=== PATIENT | male | born 1990 ===

== ENCOUNTER 2017-10-13 15:32 | Emergency (ER) | payer SELFPAY ==
[2017-10-13 15:41] VITALS: BMI 24.3
[2017-10-13] MEDS ORDERED: Lidocaine 2% Inj (20ml) IJ STA (16:11)
[2017-10-13 16:22] VITALS: RESP 19; O2SAT 99
[2017-10-13] MEDS ORDERED: Lidocaine PF 2% (5 ml) Inj (For Cardiac Arrhy) ONE (16:23)
[2017-10-13] MEDS ORDERED: Tmp-Smz 800 mg-160 mg DS Tab PO STA (16:48)
[2017-10-13 17:35] VITALS: BP 121/52; PULSE 85; TEMP 99
--- NOTE | 2017-10-13 17:58 | ED PDOC ---
Arrival/HPI - General Chief Complaint: Abnormal Skin Integrity Time Seen by Provider: 10/13/17 15:42 Historian: Patient - History of Present Illness Narrative History of Present Illness (Text): 10/13/17 17:54 26 year old male, with no significant past medical history, who presents to the ED complaining of left middle finger swelling at cuticle today. Patient notes associated redness that tracks up left arm. Patient states he did not take any medications. Patient states he may have hit finger yesterday. Patietn denies any fever, chills, nausea, vomiting, chest pain, neck pain, or any other complaints. Time/Duration: Prior to Arrival Symptom Onset: Gradual Symptom Course: Unchanged Activities at Onset: Light Context: Home Past Medical History - Provider Review Nursing Documentation Reviewed: Yes - Infectious Disease Hx of Infectious Diseases: None - Psychiatric Hx Substance Use: No - Anesthesia Hx Anesthesia: No Hx Anesthesia Reactions: No Hx Malignant Hyperthermia: No Family/Social History - Physician Review Nursing Documentation Reviewed: Yes Family/Social History: Unknown Family HX Smoking Status: Light Smoker < 10 Cigarettes Daily Hx Alcohol Use: No Hx Substance Use: No Allergies/Home Meds Allergies/Adverse Reactions: Allergies No Known Allergies Allergy (Unverified 10/13/17 16:11) Review of Systems - Physician Review All systems were reviewed & negative as marked: Yes - Review of Systems Constitutional: Normal Eyes: Normal ENT: Normal Respiratory: Normal. absent: SOB, Cough Cardiovascular: Normal. absent: Chest Pain Gastrointestinal: Normal. absent: Abdominal Pain, Diarrhea, Nausea, Vomiting Genitourinary Male: Normal. absent: Dysuria, Frequency Musculoskeletal: Normal. absent: Back Pain, Neck Pain Skin: Other (swelling and redness at left middle finger; redness tracking up left arm) Neurological: Normal. absent: Headache Endocrine: Normal Hemo/Lymphatic: Normal Psychiatric: Normal Physical Exam Vital Signs Reviewed: Yes Vital Signs Temp Pulse Resp BP Pulse Ox 10/13/17 17:36 99 F 10/13/17 17:00 99 F 85 19 121/52 L 99 10/13/17 15:51 100.1 F H 88 19 138/58 L 99 Temperature: Febrile Blood Pressure: Hypotensive Pulse: Regular Respiratory Rate: Normal Appearance: Positive for: Well-Appearing, Non-Toxic, Comfortable Pain Distress: None Mental Status: Positive for: Alert and Oriented X 3 - Systems Exam Head: Present: Atraumatic, Normocephalic Pupils: Present: PERRL Extroacular Muscles: Present: EOMI Conjunctiva: Present: Normal Mouth: Present: Moist Mucous Membranes Neck: Present: Normal Range of Motion Respiratory/Chest: Present: Clear to Auscultation, Good Air Exchange. No: Respiratory Distress, Accessory Muscle Use Cardiovascular: Present: Regular Rate and Rhythm, Normal S1, S2. No: Murmurs Abdomen: No: Tenderness, Distention, Peritoneal Signs Back: Present: Normal Inspection Upper Extremity: Present: Normal Inspection. No: Cyanosis, Edema Lower Extremity: Present: Normal Inspection. No: Edema Neurological: Present: GCS=15, CN II-XII Intact, Speech Normal Skin: Present: Warm, Dry, Other (cuticle enflames; superficial redness tracking up to eft elbow). No: Rashes Psychiatric: Present: Alert, Oriented x 3, Normal Insight, Normal Concentration Medical Decision Making ED Course and Treatment: 10/13/17 18:00 Impression: 26 year old female presents to the ED c/o redness and swelling to left middle finger cuticle. Plan: -- Keflex -- Lidocaine -- Sulfamethoxazole/Trimethoprim -- Reassess and Disposition Progress Notes: Procedure: Incision & Drainage Performed by the emergency provider Indication: Abscess Location: left middle finger cuticle Preparation: The area was prepped and draped in the usual sterile fashion and was cleansed. Local infiltration of Lidocaine 1% was used for anesthesia. Procedure: The most fluctuant portion of the abscess was incised with a #11 scalpel. No puss was expressed. Post-Procedure: Abx was started in ED. Patient will follow up in clinic in 2 days. - Medication Orders Current Medication Orders: Discontinued Medications Cephalexin Monohydrate (Keflex) 500 mg PO STAT STA PRN Reason: Protocol Stop: 10/13/17 16:49 Last Admin: 10/13/17 17:04 Dose: 500 mg Lidocaine HCl (Lidocaine 2% 20ml Vial) 5 ml IJ STAT STA Stop: 10/13/17 16:12 Last Admin: 10/13/17 16:24 Dose: Trimethoprim/Sulfamethoxazole (Bactrim Ds Tab) 1 tab PO STAT STA PRN Reason: Protocol Stop: 10/13/17 16:49 Last Admin: 10/13/17 17:04 Dose: 1 tab - Scribe Statement The provider has reviewed the documentation as recorded by the Scribe Nanette Fontanez All medical record entries made by the Scribe were at my direction and personally dictated by me. I have reviewed the chart and agree that the record accurately reflects my personal performance of the history, physical exam, medical decision making, and the department course for this patient. I have also personally directed, reviewed, and agree with the discharge instructions and disposition. Disposition/Present on Arrival - Present on Arrival Any Indicators Present on Arrival: No History of DVT/PE: No History of Uncontrolled Diabetes: No Urinary Catheter: No History of Decub. Ulcer: No History Surgical Site Infection Following: None - Disposition Have Diagnosis and Disposition been Completed?: Yes Diagnosis: Cellulitis Disposition: HOME/ ROUTINE Disposition Time: 16:45 Condition: GOOD Discharge Instructions (ExitCare): Phlebitis (DC), Cellulitis (Skin Infection) , Adult (DC) Additional Instructions: SELAM HOLT, thank you for letting us take care of you today. Your provider was Eusebio Chávez DO and you were treated for INFECTION. The emergency medical care you received today was directed at your acute symptoms. If you were prescribed any medication, please fill it and take as directed. It may take several days for your symptoms to resolve. Return to the Emergency Department if your symptoms worsen, do not improve, or if you have any other problems. Please contact your doctor or call one of the physicians/clinics you have been referred to that are listed on the Patient Visit Information form that is included in your discharge packet. Bring any paperwork you were given at discharge with you along with any medications you are taking to your follow up visit. Our treatment cannot replace ongoing medical care by a primary care provider outside of the emergency department. Thank you for allowing the [facility] team to be part of your care today. If the redness travels further up your arm, please return to the emergency room for re-evaluation. Follow up with the clinic in 2-3 days. Prescriptions: Cephalexin [cephalexin] 500 mg PO QID #28 cap Ibuprofen [Motrin] 600 mg PO Q6 PRN #20 tab PRN Reason: Pain, Moderate (4-7) Sulfamethoxazole/Trimethoprim [Bactrim DS 800 mg-160 mg] 1 tab PO BID #14 tab Referrals: Jasmine Vaughan MD [Medical Doctor] - Follow up with primary Forms: [employer] (Citizen [place]), WORK NOTE
== END 2017-10-13 17:36 | disposition home or self-care (01) ==
LOC: ED 15:32
DX: L03.012 Cellulitis of left finger (principal); F17.210 Nicotine dependence, cigarettes, uncomplicated